=== PATIENT | female | born 1930 | race Caucasian/White ===

== ENCOUNTER 2017-02-13 20:46 | Emergency (ER) | payer OTHER ==
[2017-02-13] MEDS ORDERED: NS 1,000 ML IV ONE (21:12)
[2017-02-13 21:27] LABS: % IMMATURE GRANULYOCYTES 0.5 % (0.0-1.1); ABSOLUTE IMMATURE GRANULOCYTES 0.06 10^3/uL (0.00-0.10); ADD DIFF? NO; ADD MORPH? NO; ADD SCAN? YES; ATYPICAL LYMPHOCYTE FLAG 10 (0-99); FRAGMENT RBC FLAG 0 (0-99); HEMATOCRIT 38.7 % (38.0-47.0); HEMOGLOBIN 13.2 g/dL (12.6-16.3); LIPEMIA HEMOLYSIS FLAG 90 (0-99); MEAN CELL HEMOGLOBIN 31.7 pg (27.9-34.1); MEAN CELL HEMOGLOBIN CONCENTR. 34.1 g/dL (32.4-36.7); MEAN PLATELET VOLUME 10.6 fL (8.7-11.7); PLATELET CLUMPS FLAG 0 (0-99); PLATELET COUNT 371 10^3/uL (150-400); RED BLOOD CELL COUNT 4.16 10^6/uL (4.18-5.33); RED CELL DISTRIBUTION WIDTH 13.2 % (11.5-15.2)
[2017-02-13 21:30] LABS: LEFT SHIFT FLG 300 (0-99)
[2017-02-13 21:34] LABS: ALANINE AMINOTRANSFERASE 50 IU/L (9-52); ALBUMIN 3.4 g/dL (3.5-5.0); ALKALINE PHOSPHATASE 116 IU/L (38-126); ANION GAP 15 mEq/L (8-16); ASPARTATE AMINOTRANSFERASE 85 IU/L (14-46); BILIRUBIN-CONJUGATED 0.8 mg/dL (0.0-0.5); BILIRUBIN-UNCONJUGATED 0.2 mg/dL (0.0-1.1); CARBON DIOXIDE 24 mEq/l (22-31); CHLORIDE 89 mEq/L (97-110); CREATININE 0.8 mg/dL (0.6-1.0); GLOMERULAR FILTRATION RATE > 60; GLUCOSE 134 mg/dL (70-100); POTASSIUM 3.6 mEq/L (3.5-5.2); SODIUM 128 mEq/L (134-144); TOTAL PROTEIN 6.3 g/dL (6.3-8.2)
[2017-02-13 21:35] LABS: APTT 26.8 SEC (23.0-38.0); PROTIME(PATIENT) 13.1 SEC (12.0-15.0)
[2017-02-13] MEDS ORDERED: fentaNYL 100 MCG/2 ML INJ ONE (22:02)
[2017-02-13 22:05] LABS: SCAN POSITIVE
[2017-02-13 22:09] LABS: PLATELET ESTIMATE ADEQUATE (ADEQ)
[2017-02-13] MEDS ORDERED: fentaNYL 100 MCG/2 ML INJ IVP ONE (22:11)
[2017-02-13 22:18] VITALS: TEMP 97.9
[2017-02-13] MEDS ORDERED: IOPAMIDOL (ISOVUE-300) 100 ML BTL IV ONE (22:19)
[2017-02-14] MEDS ORDERED: fentaNYL 100 MCG/2 ML INJ ONE (00:07)
[2017-02-14] MEDS ORDERED: fentaNYL 100 MCG/2 ML INJ IVP ONE (00:11)
--- NOTE | 2017-02-14 00:30 | EDPHY ---
H & P Stated Complaint: Diarrhea, Rash, Recent Abd Sgy Time Seen by Provider: 02/13/17 20:56 HPI/ROS: Chief complaint: Diarrhea History of present illness: This is an 86-year-old female who presents to the emergency department for diarrhea. Patient was admitted to [facility] approximately a week for a bowel obstruction that was surgically repaired. She was discharged a few days ago. She was doing well until the last day when she started to develop diarrhea. The diarrhea has worsen, she states she now has profuse diarrhea. No report of blood in it. She has developed associated abdominal pain and bloating and nausea. She denies other associated signs or symptoms including no fevers, no urinary symptoms. Review of systems: A 10 point review of systems was obtained and other than described above was negative - Personal History Current Tetanus Diphtheria and Acellular Pertussis (TDAP): Yes - Medical/Surgical History Hx Asthma: No Hx Chronic Respiratory Disease: No Hx Diabetes: No Hx Cardiac Disease: Yes Hx Renal Disease: No Hx Cirrhosis: No Hx Alcoholism: No Hx HIV/AIDS: No Hx Splenectomy or Spleen Trauma: No Other PMH: pmh- AFIB SCIATICA RA, diverticulosis. psh- hysterectomy, SBO repair - Social History Smoking Status: Former smoker - Physical Exam Exam: General Appearance: Alert, unwell appearing. Eyes: Pupils equal and round no pallor or injection. ENT, Mouth: Mucous membranes moist. Respiratory: There are no retractions, lungs are clear to auscultation. Cardiovascular: Regular rate and rhythm. Gastrointestinal: Bowel sounds diminished. Abdomen is distended. It is tense. It is diffusely tender to palpation. Neurological: Alert and oriented. Strength and sensation intact and symmetrical. Skin: Warm and dry, no rashes. Musculoskeletal: Neck is supple nontender. Extremities are symmetrical, full range of motion. Psychiatric: Patient is oriented X 3, there is no agitation. Constitutional: Initial Vital Signs Temperature (C) 37.1 C 02/13/17 21:05 Heart Rate 92 02/13/17 21:05 Respiratory Rate 18 02/13/17 21:05 Blood Pressure 182/75 H 02/13/17 21:05 O2 Sat (%) 92 02/13/17 21:05 O2 Delivery Mode Oxymizer O2 (L/minute) 4 Allergies/Adverse Reactions: No Known Allergies Allergy (Unverified 08/24/16 23:11) Home Medications: Medication Instructions Recorded Amiodarone HCl 02/06/17 Brimonidine 0.1% 02/06/17 CARDIZEM LA 02/06/17 Coumadin 02/06/17 FLUoxetine 02/06/17 Latanoprost 02/06/17 Lisinopril 02/06/17 Sinemet 10/100 MG (*) 02/06/17 Vicodin 5-300 mg Tablet 02/06/17 Medical Decision Making - Diagnostics Imaging: CT scan of the abdomen pelvis with IV contrast does show a high-grade small- bowel obstruction Procedures: An NG tube is placed by nursing staff ED Course/Re-evaluation: Patient discussed with my primary supervising physician Dr. Rachel Lawrence. Patient presents to the emergency department for diarrhea, abdominal pain and distension after recently undergoing surgery for a bowel obstruction. Evaluation does reveal a new small-bowel obstruction. NG tube is placed given amount of proximal distension. [facility] is consulted, patient will be transferred to [facility] where she received her care initially for further evaluation and care. EMTALA forms are filled out. Accepting doctor is Dr. Mohinder Nieves. The plan has been discussed with the patient who voiced understanding and agreement with it. Differential Diagnosis: Included but not limited to bowel obstruction, bowel perforation, abscess formation, biliary tract disease, pancreatitis - Data Points Laboratory Results: Laboratory Results 02/13/17 21:00 02/13/17 21:00 02/13/17 02/13/17 02/13/17 21:11 21:00 21:00 WBC RBC Hgb Hct MCV MCH MCHC RDW Plt Count MPV Neut % (Auto) Lymph % (Auto) [place] % (Auto) Eos % (Auto) Baso % (Auto) Nucleat RBC Rel Count Absolute Neuts (auto) Absolute Lymphs (auto) Absolute Monos (auto) Absolute Eos (auto) Absolute Basos (auto) Absolute Nucleated RBC Immature Gran % Seg Neutrophils % Band Neutrophils % Lymphocytes % Monocytes % Immature Gran # Absolute Seg Neuts Absolute Band Neuts Absolute Lymphocytes Absolute Monocytes RBC/WBC/PLT Morphology Platelet Estimate PT 13.1 SEC SEC (12.0-15.0) INR 1.00 (0.83-1.16) APTT 26.8 SEC SEC (23.0-38.0) VBG Lactic Acid 1.4 mmol/L mmol/L (0.7-2.1) Sodium 128 mEq/L L mEq/L (134-144) Potassium 3.6 mEq/L mEq/L (3.5-5.2) Chloride 89 mEq/L L mEq/L (97-110) Carbon Dioxide 24 mEq/l mEq/l (22-31) Anion Gap 15 mEq/L mEq/L (8-16) BUN 22 mg/dL mg/dL (7-23) Creatinine 0.8 mg/dL mg/dL (0.6-1.0) Estimated GFR > 60 Glucose 134 mg/dL H mg/dL (70-100) Calcium 9.0 mg/dL mg/dL (8.5-10.4) Total Bilirubin 1.0 mg/dL mg/dL (0.1-1.4) Conjugated Bilirubin 0.8 mg/dL H mg/dL (0.0-0.5) Unconjugated Bilirubin 0.2 mg/dL mg/dL (0.0-1.1) AST 85 IU/L H IU/L (14-46) ALT 50 IU/L IU/L (9-52) Alkaline Phosphatase 116 IU/L IU/L (38-126) Total Protein 6.3 g/dL g/dL (6.3-8.2) Albumin 3.4 g/dL L g/dL (3.5-5.0) Lipase 57.0 IU/L IU/L (23-300) 02/13/17 21:00 WBC 12.34 10^3/uL H 10^3/uL (3.80-9.50) RBC 4.16 10^6/uL L 10^6/uL (4.18-5.33) Hgb 13.2 g/dL g/dL (12.6-16.3) Hct 38.7 % % (38.0-47.0) MCV 93.0 fL fL (81.5-99.8) MCH 31.7 pg pg (27.9-34.1) MCHC 34.1 g/dL g/dL (32.4-36.7) RDW 13.2 % % (11.5-15.2) Plt Count 371 10^3/uL 10^3/uL (150-400) MPV 10.6 fL fL (8.7-11.7) Neut % (Auto) 89.9 % H % (39.3-74.2) Lymph % (Auto) 4.9 % L % (15.0-45.0) [place] % (Auto) 4.6 % % (4.5-13.0) Eos % (Auto) 0.0 % L % (0.6-7.6) Baso % (Auto) 0.1 % L % (0.3-1.7) Nucleat RBC Rel Count 0.0 % % (0.0-0.2) Absolute Neuts (auto) 11.10 10^3/uL H 10^3/uL (1.70-6.50) Absolute Lymphs (auto) 0.60 10^3/uL L 10^3/uL (1.00-3.00) Absolute Monos (auto) 0.57 10^3/uL 10^3/uL (0.30-0.80) Absolute Eos (auto) 0.00 10^3/uL L 10^3/uL (0.03-0.40) Absolute Basos (auto) 0.01 10^3/uL L 10^3/uL (0.02-0.10) Absolute Nucleated RBC 0.00 10^3/uL 10^3/uL (0-0.01) Immature Gran % 0.5 % % (0.0-1.1) Seg Neutrophils % 61 % % Band Neutrophils % 28 % % Lymphocytes % 7 % % Monocytes % 4 % % Immature Gran # 0.06 10^3/uL 10^3/uL (0.00-0.10) Absolute Seg Neuts 7.53 10^/uL H 10^/uL (1.70-6.50) Absolute Band Neuts 3.46 10^3/uL H 10^3/uL (0.00-0.70) Absolute Lymphocytes 0.86 10^3/uL L 10^3/uL (1.00-3.00) Absolute Monocytes 0.49 10^3/uL 10^3/uL (0.30-0.80) RBC/WBC/PLT Morphology NORMAL (NORMAL) Platelet Estimate ADEQUATE (ADEQ) PT INR APTT VBG Lactic Acid Sodium Potassium Chloride Carbon Dioxide Anion Gap BUN Creatinine Estimated GFR Glucose Calcium Total Bilirubin Conjugated Bilirubin Unconjugated Bilirubin AST ALT Alkaline Phosphatase Total Protein Albumin Lipase Medications Given: Discontinued Medications Fentanyl (Sublimaze) 50 mcg IVP EDNOW ONE Stop: 02/13/17 22:12 Last Admin: 02/13/17 22:11 Dose: 50 mcg Fentanyl (Sublimaze) 50 mcg IVP EDNOW ONE Stop: 02/14/17 00:12 Last Admin: 02/14/17 00:20 Dose: 50 mcg Sodium Chloride (Ns) 1,000 mls @ 0 mls/hr IV ONCE ONE PRN Reason: Wide Open Stop: 02/13/17 21:13 Last Admin: 02/13/17 21:23 Dose: 1,000 mls Departure - Departure Disposition: [facility] Clinical Impression: Small bowel obstruction Condition: Fair Referrals: DARCY OSBORN [Primary Care Provider] - As per Instructions
[2017-02-14 00:34] VITALS: BP 140/73; PULSE 90; RESP 18; O2SAT 94
== END 2017-02-14 00:45 | disposition short-term general hospital (02) ==
DX: K56.69 Other intestinal obstruction (principal); Z90.710 Acquired absence of both cervix and uterus; Z87.891 Personal history of nicotine dependence; Z79.01 Long term (current) use of anticoagulants
CPT/HCPCS: 74177; 96361; 96374; 96376; 99285; J3010; Q9967